=== PATIENT | male | born 1980 | race Caucasian/White ===

== ENCOUNTER 2017-02-08 12:41 | Emergency (ER) | payer BC ==
[~2017-02-08] VITALS: Ht 172.7 cm; Wt 126.0 kg
[~2017-02-08 12:41] MED LIST: BYSTOLIC10 MG PO; DILAUDID2 MG PO; FLOMAX0.4 MG PO; IMDUR30 MG PO; LISINOPRIL-HCT1 EACH PO; LIVALO2 MG PO; NAPROXEN500 MG PO; NOHOMEMEDS; PEN-VEE K,VEET500 MG PO; PLAVIX75 MG PO; PROMETHAZINE HC25 M1 PO; ST. JOSEPH ASPI81 MG PO; TORADOL10 MG PO; ZOFRAN4 MG PO
[2017-02-08] MEDS ORDERED: CLEOCIN300 MG PO (13:46)
[2017-02-08 13:54] LABS: HEMATOCRIT 44.6 % (38.0-50.0); MCH 28.8 PG (29.0-34.0); MCHC 33.2 G/DL (30.0-36.0); MCV 86.9 FL (86-99); MEAN PLAT.VOLUME 9.8 uM^3 (9.0-12.4); PLATELET COUNT 145 K/uL (156-360); RBC DIS.WIDTH-CV 13.2 % (11.8-14.6); RBC DIS.WIDTH-SD 41.6 % (39-53); RED BLOOD COUNT 5.13 M/uL (4.00-5.50); WHITE BLOOD COUNT 4.8 K/uL (4.1-10.2)
[2017-02-08 14:02] LABS: CHLORIDE 107 mEq/L (99-109); POTASSIUM 3.9 mEq/L (3.7-5.4); SODIUM 139 mEq/L (136-147)
[2017-02-08 14:04] LABS: GLUCOSE 101 mg/dL (70-99)
[2017-02-08 14:06] LABS: ANION GAP 7 MEQ/L (2-14); TOTAL BILIRUBIN 0.4 mg/dL (0.0-1.0)
[2017-02-08 14:08] LABS: ALKALINE PHOSPHATASE 34 IU/L (3-129); GFR ESTIMATE (CALCULATED) > 59 mL/min/
[2017-02-08 14:09] LABS: UREA NITROGEN (BUN) 19 mg/dL (9-23)
[2017-02-08 15:16] VITALS: BP 112/76
[2017-02-09 10:03] LABS: LYME DISEASE SEROLOGY SCREEN NEGATIVE (NEGATIVE)
== END 2017-02-08 15:16 | disposition home or self-care (01) ==
LOC: EME 12:41
PROVIDERS: Nurse Practitioner Family
DX: S30.861A Insect bite (nonvenomous) of abdominal wall, initial encounter (principal); W57.XXXA Bitten or stung by nonvenomous insect and other nonvenomous arthropods, initial encounter; R79.89 Other specified abnormal findings of blood chemistry; I25.10 Atherosclerotic heart disease of native coronary artery without angina pectoris; Z98.61 Coronary angioplasty status
CPT/HCPCS: 80053; 85027; 86618; 99281; 99284

== ENCOUNTER 2017-12-13 04:10 | Emergency (ER) | payer BC ==
[~2017-12-13] VITALS: Ht 172.7 cm; Wt 131.4 kg
[~2017-12-13 04:10] MED LIST changes: +CLEOCIN300 MG PO
[2017-12-13 04:12] VITALS: BP 123/84
[2017-12-13] MEDS ORDERED: ULTRAM50 MG PO (04:45)
[2017-12-13] MEDS ORDERED: CLEOCIN300 MG PO (04:45)
== END 2017-12-13 04:57 | disposition home or self-care (01) ==
LOC: EME 04:10
DX: K02.9 Dental caries, unspecified (principal); Z88.5 Allergy status to narcotic agent; Z88.0 Allergy status to penicillin
CPT/HCPCS: 99281; 99283

== ENCOUNTER 2018-04-26 18:26 | Emergency (ER) | payer BC ==
[~2018-04-26] VITALS: Ht 172.7 cm; Wt 128.0 kg
[~2018-04-26 18:26] MED LIST changes: +ULTRAM50 MG PO
[2018-04-26 18:50] LABS: HEMATOCRIT 46.3 % (38.0-50.0); HEMOGLOBIN 15.7 G/DL (12.5-16.6); MCH 29.7 PG (29.0-34.0); MCHC 33.9 G/DL (30.0-36.0); MCV 87.5 FL (86-99); PLATELET COUNT 224 K/uL (156-360); RBC DIS.WIDTH-CV 13.2 % (11.8-14.6); RBC DIS.WIDTH-SD 42.5 % (39-53); RED BLOOD COUNT 5.29 M/uL (4.00-5.50); WHITE BLOOD COUNT 12.9 K/uL (4.1-10.2)
[2018-04-26 19:02] LABS: CHLORIDE 106 mEq/L (99-109); POTASSIUM 4.1 mEq/L (3.7-5.4); SODIUM 140 mEq/L (136-147)
[2018-04-26 19:03] LABS: GLUCOSE 167 mg/dL (70-99)
[2018-04-26 19:07] LABS: CREATININE 1.4 mg/dL (0.6-1.3); GFR ESTIMATE (CALCULATED) > 59 mL/min/ (58.99-99999)
[2018-04-26 19:08] LABS: UREA NITROGEN (BUN) 31 mg/dL (9-23)
[2018-04-26 19:13] LABS: TROP-I INTERPRETATION NEGATIVE; TROPONIN-I < 0.01 ng/mL (0.0-0.30)
[2018-04-26] MEDS ORDERED: DOXYCYCLINE HY100 MG PO (20:37)
[2018-04-26 20:53] VITALS: BP 114/67
== END 2018-04-26 22:03 | disposition home or self-care (01) ==
LOC: EME 18:26
DX: J18.9 Pneumonia, unspecified organism (principal); I10 Essential (primary) hypertension; I25.2 Old myocardial infarction; F32.9 Major depressive disorder, single episode, unspecified; F17.200 Nicotine dependence, unspecified, uncomplicated; Z79.82 Long term (current) use of aspirin; Z79.02 Long term (current) use of antithrombotics/antiplatelets; Z95.9 Presence of cardiac and vascular implant and graft, unspecified; Z87.442 Personal history of urinary calculi; Z88.5 Allergy status to narcotic agent; Z88.0 Allergy status to penicillin
CPT/HCPCS: 71046; 80048; 84484; 85027; 93005; 99281; 99284